=== PATIENT | male | born 1965 | race Caucasian/White ===

== ENCOUNTER 2024-10-04 09:20 | Outpatient (CLI) | payer BC, SELFPAY | END 2024-10-04 09:21 | disposition home or self-care (01) | PROVIDERS: PCP Family Medicine; Visit Provider Family Medicine | DX: I10 Essential (primary) hypertension (principal); Z13.6 Encounter for screening for cardiovascular disorders; Z12.5 Encounter for screening for malignant neoplasm of prostate | CPT/HCPCS: 80048; 80061; G0103 ==

== ENCOUNTER 2024-10-13 13:48 | Outpatient (CLI) | payer BC, SELFPAY ==
[2024-10-13] MEDS: PERFLUTREN LIPID MICROSPHERES 2 ML VIAL IVP (14:25)
[2024-10-13 15:11] VITALS: BP 150/76; PULSE 95
--- NOTE | 2024-10-13 15:17 | P.STN_ITS ---
Stress Test Note Date Date Seen: 10/13/24 Date of test: 10/13/24 Providers Primary care provider: Corby Dwyer Stress test physician: Jasmeet Gibson Stress Test Note Stress test ordered: Stress Echo Indication for test: Hypertension, shortness of breath Stress test medicine: Definity Results discussion: This pleasant gentleman presents for the above test after discussion the risks benefits side effects he would like to proceed, cardiac stress test medical history form is reviewed E EKG done pre shows a ventricular rate of 78 blood pressure 164/118, there is some diffuse ST wave abnormalities of flattening noted throughout the precordium. Standard Yevgeniy protocol is employed over a t aric course of 7 minutes 16 seconds, his maximum heart rate was 163 which is 118% of the maximum, test is terminated because of fatigue, and left knee discomfort. During this test he had no appreciable chest pain shortness of breath, review of the tracings was no appreciable ST wave changes suggestive of ischemia. There are no dysrhythmias Impression: Subjectively negative, objectively negative is electrographic portion of stress echo Follow up suggested: At this point patient will be discharged, we will wait the Cardiology reading of the echo portion, clinical correlation with this will be needed, patient will follow-up with primary care physician as directed there were no complications left this testing facility in good condition.
== END 2024-10-13 13:49 | disposition home or self-care (01) ==
LOC: STRESS 13:50
PROVIDERS: PCP Family Medicine; Visit Provider Family Medicine
DX: I10 Essential (primary) hypertension (principal); R94.31 Abnormal electrocardiogram [ECG] [EKG]; R06.02 Shortness of breath
CPT/HCPCS: 93016; 93325; 93351; Q9957